=== PATIENT | male | born 1965 | race African-American/Black ===

== ENCOUNTER 2024-04-12 15:23 | Outpatient (CLI) | payer OTHER | END 2024-04-12 15:24 | disposition home or self-care (01) | LOC: CSHRAD 15:23 | PROVIDERS: ATTEND Family Medicine | DX: S69.92XA Unspecified injury of left wrist, hand and finger(s), initial encounter (principal); S62.522A Displaced fracture of distal phalanx of left thumb, initial encounter for closed fracture ==